=== PATIENT | male | born 1975 | race Two or more races ===

== ENCOUNTER 2022-09-27 13:14 | Emergency (ER) | payer MEDICAID ==
[~2022-09-27] VITALS: Ht 177.8 cm; Wt 91.8 kg
[~2022-09-27 13:14] MED LIST: NO HOME MEDS
[2022-09-27] MEDS ORDERED: CEPH250T PO (15:19)
[2022-09-27 15:29] VITALS: BP 122/76
== END 2022-09-27 15:39 | disposition home or self-care (01) ==
LOC: ER 13:16
DX: L03.116 Cellulitis of left lower limb (principal); F15.20 Other stimulant dependence, uncomplicated; Z56.0 Unemployment, unspecified
CPT/HCPCS: 93971; 99284

== ENCOUNTER 2025-07-04 12:37 | Emergency (ER) | payer MEDICAID ==
[~2025-07-04] VITALS: Ht 177.8 cm; Wt 84.0 kg
[2025-07-04 12:41] VITALS: BP 133/81; PULSE 117; RESP 18; TEMP 98.4; O2SAT 99
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
== END 2025-07-04 14:19 | disposition left against medical advice (07) ==
LOC: ER 12:38
DX: S80.812A Abrasion, left lower leg, initial encounter (principal); S80.811A Abrasion, right lower leg, initial encounter; F15.90 Other stimulant use, unspecified, uncomplicated; Z72.89 Other problems related to lifestyle; Z56.0 Unemployment, unspecified; Z90.49 Acquired absence of other specified parts of digestive tract; V89.2XXA Person injured in unspecified motor-vehicle accident, traffic, initial encounter; Y93.55 Activity, bike riding; Y92.89 Other specified places as the place of occurrence of the external cause; Y99.8 Other external cause status
CPT/HCPCS: 99282